=== PATIENT | male | born 2000 | race Caucasian/White ===

== ENCOUNTER 2022-05-09 18:30 | Outpatient (REF) | payer OTHER, SELFPAY ==
[2022-05-09 15:36] LABS: Calculated LDL 105 mg/dL (<100); Cholesterol 157 mg/dL (<200); Glucose 89 mg/dL (74-106); HDL Cholesterol 43 mg/dL (40-60); Triglyceride 49 mg/dL (<150)
== END 2022-05-09 18:31 | disposition home or self-care (01) ==
LOC: NCHCN 18:30
PROVIDERS: PCP Physician Assistant Medical; Visit Provider Physician Assistant Medical
DX: Z00.00 Encounter for general adult medical examination without abnormal findings (principal)
CPT/HCPCS: 80061; 82947